=== PATIENT | female | born 1940 | race Two or more races ===

== ENCOUNTER 2022-02-13 20:05 | Inpatient (IN) | payer OTHER ==
[~2022-02-13] VITALS: Ht 152.4 cm; Wt 47.9 kg
[2022-02-13] MEDS ORDERED: AZITHROMYCIN 500MG/ 250ML 250 ML IV ONE (20:30)
[2022-02-13] MEDS ORDERED: DexAMETHasone SOD PHOS 10MG/1ML VIAL INJ IV ONE (20:30)
[2022-02-13 22:29] LABS: Basophils # (auto) 0 10 ^3/uL (0-0.2); Basophils % (auto) 0.3 % (0.0-2.0); Eosinophils # (auto) 0.1 10 ^3/uL (0-0.8); Eosinophils % (auto) 0.5 % (0.0-7.0); Hematocrit 33.7 % (36.0-46.0); Hemoglobin 10.4 g/dL (12.2-16.2); Lymphocytes # (auto) 1.7 10 ^3/uL (0.4-5.4); Lymphocytes % (auto) 15.8 % (10.0-50.0); Mean Corpuscular Hemoglobin 22.2 pg (28.0-32.0); Mean Corpuscular Hgb Conc. 30.8 g/dL (32.0-36.0); Monocytes # (auto) 0.7 10 ^3/uL (0-1.3); Monocytes % (auto) 6.7 % (0.0-12.0); Neutrophils # (auto) 8.3 10 ^3/uL (1.6-8.6); Neutrophils % (auto) 76.7 % (37.0-80.0); Nucleated Red Blood Cells % 0.1 %; Red Blood Cells 4.68 10^6/uL (4.0-5.20); White Blood Cell 10.9 10^3/uL (4.4-10.8)
[2022-02-13 22:31] LABS: Alanine Aminotransferase 18 U/L (13-56); Albumin 3.1 g/dL (3.4-5.0); Anion Gap 11 (5-15); Aspartate Aminotransferase 31 U/L (15-37); BUN/Creatinine Ratio 12.4; Blood Urea Nitrogen 15 mg/dL (7-18); Calcium 8.4 mg/dL (8.5-10.1); Carbon Dioxide 17 mmol/L (21-32); Chloride 115 mmol/L (98-107); GFR African American 55 mL/min; GFR Non-African American 45 mL/min; Glucose 104 mg/dL (74-106); Potassium 3.6 mmol/L (3.5-5.1); Sodium 143 mmol/L (136-145)
[2022-02-13 22:34] LABS: Alkaline Phosphatase 81 U/L (45-117); Bilirubin, Total 0.5 mg/dL (0.2-1.0); Total Protein 6.3 g/dL (6.4-8.2)
[2022-02-13 22:35] LABS: Red Cell Distribution Width 22.3 % (11.8-14.3)
[2022-02-13] MEDS ORDERED: ASPirin 325 MG TAB PO ONE (23:00)
[2022-02-13] MEDS ORDERED: NITROGLYCERIN 0.4 MG SL TAB SL PRN (23:00)
[2022-02-14 00:58] LABS: INR 1.25 (0.9-1.15)
[2022-02-14] MEDS ORDERED: MORPHINE SULFATE INJECTION 2 MG/ML SYRG IV PRN (03:00)
[2022-02-14] MEDS ORDERED: NITROGLYCERIN 0.4 MG SL TAB SL PRN (03:00)
[2022-02-14 03:07] VITALS: BP 146/68
[2022-02-14 04:31] LABS: % Iron Saturation 4.5 % (15-50)
[2022-02-14 04:52] LABS: INR 1.2 (0.9-1.15); Partial Thromboplastin Time 25.9 sec (23.6-33.0)
[2022-02-14] MEDS: ALBUTEROL SULF 2.5 MG/0.5ML(0.5%) NEB SOLN NEB SCH ×4 (05:33→19:54)
[2022-02-14] MEDS ORDERED: HEPARIN SODIUM (PORCINE) 5000 UNITS/ML 1ML VIAL IV ONE (05:45)
[2022-02-14] MEDS: HEPARIN DRIP/D5W 100UNITS/ML 250 ML IV SCH (06:30)
[2022-02-14] MEDS: FUROSEMIDE 40 MG/4 ML VIAL IV SCH ×2 (10:26→21:45)
[2022-02-14 12:00] VITALS: BP 118/70
[2022-02-14] MEDS ORDERED: ACETAMINOPHEN 325 MG TAB PO PRN (15:15)
[2022-02-14] MEDS ORDERED: PANTOPRAZOLE 40 MG TAB PO ONE (15:15)
[2022-02-14] MEDS ORDERED: ONDANSETRON HCL 4 MG/2 ML VIAL IV PRN (15:15)
[2022-02-14 16:00] VITALS: BP 124/77
[2022-02-14 22:00] VITALS: BP 120/72
[2022-02-14 22:49] LABS: INR 1.21 (0.9-1.15); Partial Thromboplastin Time 30.5 sec (23.6-33.0)
[2022-02-14] MEDS ORDERED: HEPARIN SODIUM (PORCINE) 5000 UNITS/ML 1ML VIAL IV PRN (23:15)
[2022-02-15 01:51] LABS: Urine Bacteria NONE SEEN /hpf (None Seen); Urine Blood Negative /uL (Negative); Urine Specific Gravity 1.006 (1.001-1.035); Urine WBC <1 /hpf (0 - 5)
[2022-02-15 05:00] VITALS: BP 105/68
[2022-02-15] MEDS: HEPARIN DRIP/D5W 100UNITS/ML 250 ML IV SCH ×2 (05:45→19:53)
[2022-02-15] MEDS: ALBUTEROL SULF 2.5 MG/0.5ML(0.5%) NEB SOLN NEB SCH ×4 (05:49→23:21)
[2022-02-15 06:33] LABS: Basophils # (auto) 0.1 10 ^3/uL (0-0.2); Eosinophils # (auto) 0.1 10 ^3/uL (0-0.8); Eosinophils % (auto) 1.4 % (0.0-7.0); Hemoglobin 9.9 g/dL (12.2-16.2); Lymphocytes # (auto) 2.3 10 ^3/uL (0.4-5.4); Monocytes # (auto) 0.8 10 ^3/uL (0-1.3); Nucleated Red Blood Cells % 0.1 %
[2022-02-15 06:37] LABS: Basophils % (auto) 0.7 % (0.0-2.0); Hematocrit 32.1 % (36.0-46.0); Lymphocytes % (auto) 23.3 % (10.0-50.0); Mean Corpuscular Hemoglobin 22.6 pg (28.0-32.0); Mean Corpuscular Hgb Conc. 30.9 g/dL (32.0-36.0); Mean Corpuscular Volume 73.1 fL (80.0-100.0); Monocytes % (auto) 7.8 % (0.0-12.0); Neutrophils # (auto) 6.6 10 ^3/uL (1.6-8.6); Neutrophils % (auto) 66.8 % (37.0-80.0); White Blood Cell 9.9 10^3/uL (4.4-10.8)
[2022-02-15 06:48] LABS: BUN/Creatinine Ratio 16.4; Calcium 8.5 mg/dL (8.5-10.1); Magnesium 2.1 mg/dL (1.6-2.6); Potassium 3.3 mmol/L (3.5-5.1)
[2022-02-15 06:52] LABS: Red Cell Distribution Width 21.9 % (11.8-14.3)
[2022-02-15 07:51] LABS: Protein, Urine 5.5 mg/dL (0.0-11.9); Sodium Urine 124 mmol/L (40-220)
[2022-02-15 08:49] LABS: Creatinine, Urine < 30 mg/dL (30.0-125.0)
[2022-02-15 09:00] VITALS: BP 112/67
[2022-02-15] MEDS: CLOPIDOGREL BISULFATE 75 MG TAB PO SCH (09:35)
[2022-02-15] MEDS: FUROSEMIDE 40 MG/4 ML VIAL IV SCH ×2 (09:35→22:00)
[2022-02-15] MEDS: PANTOPRAZOLE 40 MG TAB PO SCH (09:35)
[2022-02-15 12:00] VITALS: BP 114/55
[2022-02-15 12:31] LABS: INR 1.29 (0.9-1.15)
[2022-02-15 12:33] LABS: Partial Thromboplastin Time 129.3 sec (23.6-33.0)
[2022-02-15] MEDS ORDERED: POTASSIUM CHL 20 Meq TABLET PO ONE (13:15)
[2022-02-15 16:00] VITALS: BP 103/72
[2022-02-15 19:11] LABS: INR 1.17 (0.9-1.15); Partial Thromboplastin Time 36.5 sec (23.6-33.0)
[2022-02-15 22:00] VITALS: BP 94/62
[2022-02-16 05:00] VITALS: BP 137/70
[2022-02-16] MEDS: ALBUTEROL SULF 2.5 MG/0.5ML(0.5%) NEB SOLN NEB SCH ×3 (05:29→19:07)
[2022-02-16 06:42] LABS: BUN/Creatinine Ratio 20.2; Calcium 8.1 mg/dL (8.5-10.1); Potassium 3.6 mmol/L (3.5-5.1)
[2022-02-16 09:00] VITALS: BP 115/67
[2022-02-16] MEDS: CLOPIDOGREL BISULFATE 75 MG TAB PO SCH (09:51)
[2022-02-16] MEDS: FUROSEMIDE 40 MG/4 ML VIAL IV SCH (09:51)
[2022-02-16] MEDS: PANTOPRAZOLE 40 MG TAB PO SCH (09:52)
[2022-02-16 13:23] VITALS: BP 112/63
[2022-02-16] MEDS ORDERED: FURO1TAB33 PO (13:59)
[2022-02-16] MEDS ORDERED: CLOP75TA70 PO (13:59)
[2022-02-16 16:03] VITALS: BP 115/67
[2022-02-16 17:00] VITALS: BP 105/56
[2022-02-16] MEDS ORDERED: SODIUM CHLORIDE 0.9 % NEB SOLN 3ML NEB ONE (18:23)
== END 2022-02-16 19:35 | disposition home health service (06) | DRG 280 ==
LOC: ER 20:05 → EDBD 20:05 → TELE 02-14 02:58 → TELE-WESTW 02-14 09:08
PROVIDERS: ADMIT Internal Medicine; ATTEND Internal Medicine Geriatric Medicine
PROC: 05HA33Z Insertion of Infusion Device into Left Brachial Vein, Percutaneous Approach (ICD-10-PCS; principal; 2022-02-14)
PROC: B54NZZA Ultrasonography of Left Upper Extremity Veins, Guidance (ICD-10-PCS; 2022-02-14)
DX: I21.4 Non-ST elevation (NSTEMI) myocardial infarction (principal); I50.33 Acute on chronic diastolic (congestive) heart failure; N17.9 Acute kidney failure, unspecified; I13.0 Hypertensive heart and chronic kidney disease with heart failure and stage 1 through stage 4 chronic kidney disease, or unspecified chronic kidney disease; J44.9 Chronic obstructive pulmonary disease, unspecified; D63.1 Anemia in chronic kidney disease; N18.9 Chronic kidney disease, unspecified; R09.02 Hypoxemia; I27.20 Pulmonary hypertension, unspecified; E87.6 Hypokalemia; Z20.822 Contact with and (suspected) exposure to COVID-19; D50.9 Iron deficiency anemia, unspecified
CPT/HCPCS: 36415; 71045; 80048; 80053; 81001; 82570; 82728; 83540; 83550; 83735; 83880; 84156; 84300; 84484; 85025; 85610; 85730; 93005; 93306; 94640; 96361; 96365; 96375; G0378; J1100